=== PATIENT | female | born 1995 | race Caucasian/White ===

== ENCOUNTER → 2017-05-11 | Outpatient (CLI) | payer OTHER | LOC: BMCIMAGING 11:00 | PROVIDERS: ATTEND Family Medicine | DX: M79.644 Pain in right finger(s) (principal) ==

== ENCOUNTER 2017-06-19 18:06 | Emergency (ER) | payer OTHER ==
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
[2017-06-19 19:38] LABS: PLATELET COUNT 245 10^3/uL (150-400)
[2017-06-19 20:41] VITALS: BP 116/69
[2017-06-19] MEDS ORDERED: CYCLOBENZAPRINE 10MG PREPACK#3 BTL TAKEHOME ONE (20:42)
== END 2017-06-19 20:50 | disposition home or self-care (01) ==
DX: T83.83XA Hemorrhage due to genitourinary prosthetic devices, implants and grafts, initial encounter (principal); Y73.2 Prosthetic and other implants, materials and accessory gastroenterology and urology devices associated with adverse incidents